=== PATIENT | female | born 1955 | race Caucasian/White ===

== ENCOUNTER 2021-05-05 11:19 | Day surgery (SDC) | payer BC ==
[~2021-05-05] VITALS: Ht 180.3 cm; Wt 116.6 kg
[2021-05-05] MEDS ORDERED: Aspir 8181 MG (11:53)
[2021-05-05] MEDS ORDERED: Crestor20 MG (11:54)
[2021-05-05] MEDS ORDERED: THYR60 (11:54)
[2021-05-05] MEDS ORDERED: SITA100T2 (11:54)
[2021-05-05] MEDS ORDERED: FOLIKA-NC TABL1 EACH (11:54)
[2021-05-05] MEDS ORDERED: PIOG30 (11:54)
[2021-05-05] MEDS ORDERED: ZYRTEC10 M2 (11:55)
--- NOTE | 2021-05-05 12:12 | NUR ---
05/05/21 1212 Destiny Verdin 1 TRY RIGHT HAND NO FLASH 2 TRY RIGHT WRIST NO FLASH
== END 2021-05-05 13:42 | disposition home or self-care (01) ==
LOC: ORSCSDS 11:19
PROVIDERS: Surgery
PROC: 0DBN8ZX Excision of Sigmoid Colon, Via Natural or Artificial Opening Endoscopic, Diagnostic (ICD-10-PCS; principal; 2021-05-05 13:00)
DX: Z12.11 Encounter for screening for malignant neoplasm of colon (principal); Z80.0 Family history of malignant neoplasm of digestive organs; Z86.010 Personal history of colon polyps; D12.5 Benign neoplasm of sigmoid colon; K57.30 Diverticulosis of large intestine without perforation or abscess without bleeding; E11.9 Type 2 diabetes mellitus without complications; I10 Essential (primary) hypertension; E03.9 Hypothyroidism, unspecified; Z79.82 Long term (current) use of aspirin; Z79.899 Other long term (current) drug therapy
CPT/HCPCS: 82947; 87426; 88305; C9803; J2704; J7120

== ENCOUNTER 2022-05-02 14:26 | Inpatient (IN) | payer BC ==
[~2022-05-02] VITALS: Ht 180.3 cm; Wt 114.5 kg
[~2022-05-02 14:26] MED LIST: Aspir 8181 MG; Crestor20 MG; FOLIKA-NC TABL1 EACH; PIOG30; SITA100T2; THYR60; ZYRTEC10 M2
[2022-05-02 15:59] LABS: BASOPHILS ABSOLUTE AUTO 0.12 K/mm3 (0.00-0.23); BASOPHILS PERCENT AUTO 1 % (0-2); EOSINOPHILS ABSOLUTE AUTO 0.12 K/mm3 (0.00-0.68); EOSINOPHILS PERCENT AUTO 1 % (0-6); Hematocrit 37.7 % (33.0-51.0); Hemoglobin 12.7 g/dL (11.5-16.0); IMMATURE GRAN ABSOLUTE AUTO 0.19 K/mm3 (0.00-0.10); IMMATURE GRAN PERCENT AUTO 1 % (0-1); LYMPHOCYTES ABSOLUTE AUTO 1.42 K/mm3 (0.84-5.20); LYMPHOCYTES PERCENT AUTO 8 % (21-46); MONOCYTES ABSOLUTE AUTO 1.35 K/mm3 (0.16-1.47); MONOCYTES PERCENT AUTO 7 % (4-13); Mean Corpuscular HGB Conc 33.7 g/dL (31.5-36.5); Mean Corpuscular Volume 89 fL (80-100); Mean Platelet Volume 11.2 fL (9.1-12.4); NEUTROPHILS ABSOLUTE AUTO 14.95 K/mm3 (1.96-9.15); NEUTROPHILS PERCENT AUTO 82 % (41-73); Platelet Count 226 K/mm3 (150-400); RDW Coefficient Variation 13.5 % (11.7-14.2); RDW Standard Deviation 43.8 fL (35.1-46.3); Red Blood Cell Count 4.23 M/mm3 (3.80-5.20); White Blood Cell Count 18.15 K/mm3 (4.00-11.30)
[2022-05-02 16:16] LABS: Albumin, Blood 2.6 g/dL (3.4-5.0); Albumin/Globulin Ratio 0.5 (0.8-1.8); Bilirubin, Total 0.9 mg/dL (0.1-1.0); Bun/Creatinine Ratio 31.4 (12.0-20.0); Calcium, Blood 9.5 mg/dL (8.5-10.1); Creatinine, Blood 1.05 mg/dL (0.40-1.00); Potassium, Blood 3.4 mmol/L (3.5-5.5); Total Protein, Blood 7.6 g/dL (6.4-8.2)
[2022-05-02 16:36] LABS: Influenza A, PCR NEGATIVE (NEGATIVE); Influenza B, PCR NEGATIVE (NEGATIVE); Resp Syncytial Virus, PCR NEGATIVE (NEGATIVE); SARS-Cov-2 (COVID-19) PCR, MMC NEGATIVE (NEGATIVE)
[2022-05-02 17:40] LABS: Source, Urine Clean Catch
[2022-05-02 17:44] LABS: Blood, Urine 3+ (Neg); Glucose Qualitative, Urine Neg (Neg); Ketones, Urine 1+ (Neg); Leukocyte Esterase, Urine 2+ (Neg); Nitrite, Urine Pos (Neg); Protein, Urine 3+ (Neg); Specific Gravity, Urine 1.015 (1.003-1.022); Urobilinogen, Urine 2+ (Normal)
[2022-05-02 17:54] LABS: Appearance, Urine Hazy (Clear); Bilirubin, Urine 1+ (Neg); Color, Urine Amber (P-Yellow)
[2022-05-02 17:56] LABS: Bacteria Many /hpf; Squamous Epithelial Cells Mod /hpf (Few)
[2022-05-02 17:58] LABS: Hyaline Casts 0-2 /lpf (0-2); Mucus Light (0-Heavy)
[2022-05-02] MEDS ORDERED: Ramipril10 MG PO (19:46)
[2022-05-02] MEDS ORDERED: B12-FOLIC ACID1 EACH PO (20:43)
[2022-05-03 03:44] LABS: BASOPHILS ABSOLUTE AUTO 0.12 K/mm3 (0.00-0.23); BASOPHILS PERCENT AUTO 1 % (0-2); EOSINOPHILS ABSOLUTE AUTO 0.13 K/mm3 (0.00-0.68); EOSINOPHILS PERCENT AUTO 1 % (0-6); Hematocrit 37.6 % (33.0-51.0); Hemoglobin 12.3 g/dL (11.5-16.0); IMMATURE GRAN ABSOLUTE AUTO 0.19 K/mm3 (0.00-0.10); IMMATURE GRAN PERCENT AUTO 1 % (0-1); LYMPHOCYTES ABSOLUTE AUTO 1.47 K/mm3 (0.84-5.20); LYMPHOCYTES PERCENT AUTO 10 % (21-46); MONOCYTES ABSOLUTE AUTO 1.26 K/mm3 (0.16-1.47); MONOCYTES PERCENT AUTO 8 % (4-13); Mean Corpuscular HGB 29.8 pg (26.0-34.0); Mean Corpuscular HGB Conc 32.7 g/dL (31.5-36.5); Mean Corpuscular Volume 91 fL (80-100); Mean Platelet Volume 11.2 fL (9.1-12.4); NEUTROPHILS PERCENT AUTO 79 % (41-73); Platelet Count 195 K/mm3 (150-400); RDW Coefficient Variation 13.5 % (11.7-14.2); RDW Standard Deviation 45.2 fL (35.1-46.3); Red Blood Cell Count 4.13 M/mm3 (3.80-5.20); White Blood Cell Count 15.27 K/mm3 (4.00-11.30)
[2022-05-03 04:07] LABS: Albumin, Blood 2.3 g/dL (3.4-5.0); Albumin/Globulin Ratio 0.5 (0.8-1.8); Bilirubin, Total 0.6 mg/dL (0.1-1.0); Bun/Creatinine Ratio 30.6 (12.0-20.0); Calcium, Blood 9.1 mg/dL (8.5-10.1); Creatinine, Blood 0.88 mg/dL (0.40-1.00); Globulin, Blood 4.6 g/dL (2.2-4.0); Magnesium, Blood 1.9 mg/dL (1.6-2.4); Potassium, Blood 3.4 mmol/L (3.5-5.5); Total Protein, Blood 6.9 g/dL (6.4-8.2)
--- NOTE | 2022-05-03 05:33 | NUR ---
SHIFT SUMMARY PT NEW ADMIT THIS SHIFT. AAOX4. NPO. DISCOMFORT CONTROLLED WITH X1 25mcg FENTNAYL IV THIS AM. NO NAUSEA/EMESIS. INDEPENDENT IN ROOM. IVF TKO + ABX. ORIENTED TO ROOM + CALL LIGHT USE. ABX HX + MED RECONCILIATION COMPLETE PER PT. NO ACUTE CHANGES THIS MORNING. PT CURRENTLY RESTING IN BED WITH CALL LIGHT IN REACH.
--- NOTE | 2022-05-03 11:14 | NUR ---
PT TRANSPORTED TO [facility]. VIA GURNEY. AGREES WITH PLANNED SURGERY. LUNG SOUNDS CLEAR. DENIES COMPLAINTS AT PRESENT.
--- NOTE | 2022-05-03 19:36 | NUR ---
SHIFT SUMMARY PT A&OX4, PERICO PO CLD, VOIDING WELL, AMB SBA TO BRP/REPOSITIONS SELF IN BED, PAIN MANAGED WITH NORCO 5 MG. S/P LAP APPY, 3 LAP SITES W/INNA (SSD 80 MLS OUT). REPORT PROVIDED TO KVNG DOUGLAS.
--- NOTE | 2022-05-04 04:23 | NUR ---
SHIFT SUMMARY PT RESTED WELL T/O SHIFT. 1 NORCO FOR PAIN. STERI STRIPS X2 TO ABD REMAIN CDI. INNA DRAIN WITH SMALL AMOUNT PINK/YELLOW DRAINAGE. PT DENIES FLATUS. UP INDEP TO RESTROOM TO VOID. IV ABX PER ORDERS. NO ACUTE CHANGES. USES CALL LIGHT APPROPRIATELY.
[2022-05-04 04:34] LABS: Hematocrit 33.6 % (33.0-51.0); Hemoglobin 11.3 g/dL (11.5-16.0); Mean Corpuscular HGB 29.9 pg (26.0-34.0); Mean Corpuscular HGB Conc 33.6 g/dL (31.5-36.5); Mean Corpuscular Volume 89 fL (80-100); Mean Platelet Volume 11.4 fL (9.1-12.4); Platelet Count 204 K/mm3 (150-400); RDW Coefficient Variation 13.6 % (11.7-14.2); RDW Standard Deviation 44.6 fL (35.1-46.3); Red Blood Cell Count 3.78 M/mm3 (3.80-5.20); White Blood Cell Count 14.21 K/mm3 (4.00-11.30)
[2022-05-04 05:03] LABS: Anion Gap 9 mmol/L (6-16); Blood Urea Nitrogen 18 mg/dL (8-24); Bun/Creatinine Ratio 22.1 (12.0-20.0); CO2, Blood 22 mmol/L (21-32); Calcium, Blood 8.6 mg/dL (8.5-10.1); Chloride, Blood 105 mmol/L (98-108); Creatinine, Blood 0.82 mg/dL (0.40-1.00); Glomerular Filtration Rate 80 (60-); Glucose, Blood 302 mg/dL (70-99); Phosphorus, Blood 1.5 mg/dL (2.5-4.9); Sodium, Blood 136 mmol/L (136-145)
[2022-05-04] MEDS ORDERED: PREMPRO PO (18:14)
--- NOTE | 2022-05-04 20:13 | NUR ---
SHIFT SUMMARY PT A&OX4, VSS/RA, PERICO CLD, AMB INDEPENDENTLY IN ROOM/HALLWAY/BRP, VOIDING WELL, DENIES NEED FOR PAIN MED. POD1 LAP APPY, 2 LAP SITES CDI, INNA DRAIN W/ SSD 40 MLS OUT. REPORT PROVIDED TO IRVING DOUGLAS.
[2022-05-05 04:29] LABS: Hematocrit 31.6 % (33.0-51.0); Hemoglobin 10.7 g/dL (11.5-16.0); Mean Corpuscular HGB 29.6 pg (26.0-34.0); Mean Corpuscular HGB Conc 33.9 g/dL (31.5-36.5); Mean Corpuscular Volume 88 fL (80-100); Mean Platelet Volume 10.6 fL (9.1-12.4); Platelet Count 248 K/mm3 (150-400); RDW Coefficient Variation 13.8 % (11.7-14.2); RDW Standard Deviation 44.3 fL (35.1-46.3); Red Blood Cell Count 3.61 M/mm3 (3.80-5.20)
[2022-05-05 04:46] LABS: Bun/Creatinine Ratio 17.8 (12.0-20.0); Calcium, Blood 8.4 mg/dL (8.5-10.1); Creatinine, Blood 0.79 mg/dL (0.40-1.00); Potassium, Blood 3.1 mmol/L (3.5-5.5)
--- NOTE | 2022-05-05 07:16 | NUR ---
POD 2 S/P LAP APPY. TP VSS T/O NIGHT. INCISIONS CDI, INNA PUT OUT 40ML LIGHT SS DRNG. PT REP ABD LESS DISTENDED THIS AM, PT DENIED N/V, REP STILL NOT PASSING ANY FLATUS YET. PT DENIED ABS PAIN, MED FOR BACK/NECK PAIN THIS AM. PT INDEP IN ROOM, IS EMPTYING INNA DRAIN INDEP. BEDSIDE REP GIVEN TO Robert TERRAZAS RN.
--- NOTE | 2022-05-05 08:38 | NUR ---
PT APPEARS TO BE RESTING COMFORTABLY AT THIS TIME, AWAKENS EASILY TO VERBAL STIMULI BUT FALLS BACK ASLEEP QUICKLY. CT TO SX, MIN DRAINAGE PRESENT IN PLEURAVAC. PT DENIES CP OR SOB. DENIES NEED FOR PAIN MEDICATION AT THIS TIME. SIG OTHER AT BEDSIDE AT THIS TIME.
--- NOTE | 2022-05-05 19:08 | NUR ---
SHIFT SUMMARY PT HAS DONE WELL T/O SHIFT. AMBULATING INDEPENDENTLY IN ROOM AND HALLWAYS. HAS DENIED PAIN T/O SHIFT. SMALL AMTS CLEAR LIQUID, NO C/O N/V. PT DENIES ANY FLATUS. CONTINUE IV ABX.
--- NOTE | 2022-05-06 04:10 | NUR ---
POD3 FOR LAP APPY. X3 LAP SITES ARE C/D/I. INNA HAD MINIMAL SS OUTPUT. VSS. PT SLEPT ON AND OFF T/O THE NIGHT. PT TOLLERATING SOME PO INTAKE W/O N/V. NO FLATTUS YET. AMBULATING AND VOIDING W/O DIFFICULTY. PLAN FOR PT TO ADVANCE DIET AND CONTINUE IV ABX. THE PATIENT IS CURRENTLY SLEEPING, IN NO DISTRESS, CALL LIGHT IN REACH.
[2022-05-06 05:02] LABS: Hematocrit 36.8 % (33.0-51.0); Hemoglobin 12.6 g/dL (11.5-16.0); Mean Corpuscular HGB 29.6 pg (26.0-34.0); Mean Corpuscular HGB Conc 34.2 g/dL (31.5-36.5); Mean Corpuscular Volume 86 fL (80-100); Mean Platelet Volume 10.3 fL (9.1-12.4); NRBC ABSOLUTE 0.02 K/mm3 (0.00-0.02); NRBC Auto 0.1 /100 WBC (0.0-0.2); Platelet Count 309 K/mm3 (150-400); RDW Coefficient Variation 13.9 % (11.7-14.2); Red Blood Cell Count 4.26 M/mm3 (3.80-5.20); White Blood Cell Count 15.32 K/mm3 (4.00-11.30)
[2022-05-06 05:24] LABS: Magnesium, Blood 1.3 mg/dL (1.6-2.4)
[2022-05-06 05:27] LABS: Bun/Creatinine Ratio 12.6 (12.0-20.0); Calcium, Blood 8.5 mg/dL (8.5-10.1); Creatinine, Blood 0.72 mg/dL (0.40-1.00); Potassium, Blood 3.5 mmol/L (3.5-5.5)
--- NOTE | 2022-05-06 18:55 | NUR ---
SHIFT SUMMARY PT HAS DONE WELL T/O SHIFT. NO C/O PAIN. TOLERATING SMALL AMTS FULL LIQUID WITH NO N/V.
--- NOTE | 2022-05-07 04:30 | NUR ---
POD4 FOR A LAP APPY WITH INNA PLACEMENT. LAP SITES ARE C/D/I. MINIMAL SS OUTPUT NOTED FROM INNA DRAIN. VSS. PT SLEPT POORLY T/O THE NIGHT D/T UNCOMFORTABLE BED. NO COMPLAINTS OF PAIN. PT PASING FLATTUS AND PASSED A BM THIS SHIFT. TOLLERATING SOME PO INTAKE W/O N/V. PLAN FOR PT TO CONTINUE ABX THERAPY. THE PATIENT IS CURRENTLY RESTING, IN NO DISTRESS, CALL LIGHT IN REACH.
[2022-05-07 05:39] LABS: Hematocrit 33.7 % (33.0-51.0); Hemoglobin 11.5 g/dL (11.5-16.0); Mean Corpuscular HGB 29.9 pg (26.0-34.0); Mean Corpuscular HGB Conc 34.1 g/dL (31.5-36.5); Mean Corpuscular Volume 88 fL (80-100); Mean Platelet Volume 10.2 fL (9.1-12.4); NRBC ABSOLUTE 0.02 K/mm3 (0.00-0.02); NRBC Auto 0.1 /100 WBC (0.0-0.2); Platelet Count 258 K/mm3 (150-400); RDW Coefficient Variation 14.3 % (11.7-14.2); RDW Standard Deviation 45.3 fL (35.1-46.3); Red Blood Cell Count 3.85 M/mm3 (3.80-5.20); White Blood Cell Count 13.87 K/mm3 (4.00-11.30)
[2022-05-07 06:06] LABS: Bun/Creatinine Ratio 11.3 (12.0-20.0); Calcium, Blood 8.3 mg/dL (8.5-10.1); Creatinine, Blood 0.71 mg/dL (0.40-1.00); Magnesium, Blood 1.6 mg/dL (1.6-2.4); Phosphorus, Blood 3.2 mg/dL (2.5-4.9); Potassium, Blood 3.3 mmol/L (3.5-5.5)
--- NOTE | 2022-05-07 16:52 | NUR ---
SHIFT SUMMARY: POD 4 LAP APPY WITH INNA NO SIGNIFICANT CHANGES. A&OX4. SBP WAS HIGH THIS MORNING BUT THEN DECREASED WITH PRN HYDRALAZINE. OTHERWISSE VS ARE WNL AND IS ON RA. PAIN IS MANAGED WITH PO PAIN MEDICATIONS. PATIENTS 3 LAP SITES ON HER ABD WITH WOUND GLUE ARE C/D/I. HER INNA DRAIN SITE WITH GAUZE ARE C/D/I WITH BULB COMPRESSED. OUTPUT FROM INNA IS LIGHT YELLOW. ABD IS TENDER TO TOUCH BUT HAS HYPERACTIVE BOWEL TONES. SHE IS TOLERATING PO INTAKE AND IS VOIDING/PASSING GAS/HAD A BM THIS MORNING. CALLS APPROPRIATELY. CALL LIGHT WITHIN REACH. THE PLAN IS TO MONITOR PATIENT FOR ANOTHER NIGHT AND THEN IF APPROPRIATE WILL HAVE THE INNA TAKEN OUT PRIOR TO DISCHARGE TOMORROW.
[2022-05-08 04:41] LABS: Hematocrit 34.4 % (33.0-51.0); Hemoglobin 11.7 g/dL (11.5-16.0); Mean Corpuscular HGB 29.8 pg (26.0-34.0); Mean Corpuscular Volume 88 fL (80-100); Mean Platelet Volume 9.9 fL (9.1-12.4); Platelet Count 283 K/mm3 (150-400); RDW Coefficient Variation 14.3 % (11.7-14.2); RDW Standard Deviation 45.4 fL (35.1-46.3); Red Blood Cell Count 3.92 M/mm3 (3.80-5.20); White Blood Cell Count 15.09 K/mm3 (4.00-11.30)
--- NOTE | 2022-05-08 05:10 | NUR ---
SHIFT SUMMARY NO ACUTE CHANGES TO REPORT OVERNIGHT POD 4 LAP APPY, PT IS DENYING ABD PAIN, BUT DOES REPORT BLOATING, SHE REPORTS THAT SHE IS PASSING GAS. NO N/V. IV ANTIBIOTICS CONTINUED. INNA DRAIN TO RLQ WITH MINIMAL SEROUS OUTPUT. PT HAS RESTED MOST OF THE NIGHT, BED IN LOWEST POSITION, CALL LIGHT WITHIN REACH.
[2022-05-08 05:14] LABS: Bun/Creatinine Ratio 13.1 (12.0-20.0); Calcium, Blood 8.3 mg/dL (8.5-10.1); Creatinine, Blood 0.61 mg/dL (0.40-1.00); Potassium, Blood 3.6 mmol/L (3.5-5.5)
[2022-05-08] MEDS ORDERED: AMLO10 PO (12:52)
[2022-05-08] MEDS ORDERED: MIRALAX11910 PO (12:53)
[2022-05-08] MEDS ORDERED: AMOCLA875 PO (12:54)
[2022-05-08] MEDS ORDERED: VISBIOME 112.51 EACH PO (12:54)
[2022-05-08] MEDS ORDERED: METR500 PO (13:23)
[2022-05-08] MEDS ORDERED: LEVFLO500 PO (13:24)
== END 2022-05-08 14:27 | disposition home or self-care (01) | DRG 330 ==
LOC: ER 14:26 → SURS 21:16
PROVIDERS: Internal Medicine; Physician Assistant; Surgery; ADMIT Student in an Organized Health Care Education/Training Program
PROC: 0DBH4ZZ Excision of Cecum, Percutaneous Endoscopic Approach (ICD-10-PCS; 2022-05-03)
PROC: 3E1M48Z Irrigation of Peritoneal Cavity using Irrigating Substance, Percutaneous Endoscopic Approach (ICD-10-PCS; 2022-05-03)
PROC: 0DTJ4ZZ Resection of Appendix, Percutaneous Endoscopic Approach (ICD-10-PCS; principal; 2022-05-03 11:30)
DX: K35.33 Acute appendicitis with perforation, localized peritonitis, and gangrene, with abscess (principal); E87.1 Hypo-osmolality and hyponatremia; E11.9 Type 2 diabetes mellitus without complications; I10 Essential (primary) hypertension; Z20.822 Contact with and (suspected) exposure to COVID-19; E78.00 Pure hypercholesterolemia, unspecified; E03.9 Hypothyroidism, unspecified; E78.5 Hyperlipidemia, unspecified; E66.9 Obesity, unspecified; E87.6 Hypokalemia; E83.42 Hypomagnesemia; Z88.1 Allergy status to other antibiotic agents; Z79.82 Long term (current) use of aspirin; Z79.84 Long term (current) use of oral hypoglycemic drugs; Z79.899 Other long term (current) drug therapy; Z68.35 Body mass index [BMI] 35.0-35.9, adult
CPT/HCPCS: 0241U; 36415; 74177; 80048; 80053; 80069; 81001; 82947; 83690; 83735; 84100; 84484; 85025; 85027; 87086; 88304; 93005; 93010; 96365-59; 96367; 96375; 99285-25; A9270; J0295; J0360; J0692; J0696; J1650; J1815; J2250; J2270; J2405; J2704; J2710; J2765; J2795; J3010; J3475; J3480; J7030; J7050; J7120; Q9967